=== PATIENT | male | born 1990 | race Caucasian/White ===

== ENCOUNTER 2018-08-11 00:29 | Emergency (ER) | payer OTHER ==
[2018-08-11 00:35] VITALS: BP 128/81
[2018-08-11] MEDS ORDERED: CLINDAMYCIN 150 MG CAP PO ONE (01:10)
[2018-08-11] MEDS ORDERED: CLINDAMYCIN 150MG PREPACK#6 BTL TAKEHOME ONE (01:10)
--- NOTE | 2018-08-11 01:14 | EDPHY ---
H & P Stated Complaint: Bug bite/scratch on R arm, white pus from bite, concerned for MRSA Time Seen by Provider: 08/11/18 00:51 HPI/ROS: HPI The patient presents with red bump of his right forearm which has been present for the last 1 day. It initially drained small amount of pus. He comes in now because he notices that the redness is spreading beyond the red bump. It is slightly painful, not itchy. No prior history of similar.. REVIEW OF SYSTEMS 10 systems were reviewed and negative with the exception of the elements mentioned in the history of present illness. PMHx: Healthy PHYSICAL General Appearance: Alert, no distress Eyes: Pupils equal and round no pallor or injection ENT, Mouth: Mucous membranes moist Respiratory: Breathing comfortably Neurological: A&O, moves all extremities Skin: Warm and dry, right forearm with 5 mm erythematous pustule with surrounding 2 cm of erythema with no lymphangitis streaking Extremities: symmetrical, full range of motion Psychiatric: Patient is oriented X 3, there is no agitation Source: Patient Exam Limitations: No limitations - Personal History Current Tetanus Diphtheria and Acellular Pertussis (TDAP): No - Medical/Surgical History Hx Asthma: No Hx Chronic Respiratory Disease: No Hx Diabetes: No Hx Cardiac Disease: No Hx Renal Disease: No Hx Cirrhosis: No Hx Alcoholism: No Hx HIV/AIDS: No Hx Splenectomy or Spleen Trauma: No Other PMH: Ringworm - Social History Smoking Status: Current some day smoker Constitutional: Initial Vital Signs Temperature (C) 36.4 C 08/11/18 00:30 Heart Rate 82 08/11/18 00:30 Respiratory Rate 17 08/11/18 00:30 Blood Pressure 128/81 H 08/11/18 00:30 O2 Sat (%) 97 08/11/18 00:30 O2 Delivery Mode Room Air Allergies/Adverse Reactions: No Known Allergies Allergy (Unverified 08/11/18 00:35) Home Medications: Medication Instructions Recorded Clindamycin HCl [Clindamycin] 300 mg PO TID 7 Days cap 08/11/18 Medical Decision Making Differential Diagnosis: 28-year-old male with very small abscess with surrounding cellulitis which is quite minimal with no lymphangitis streaking. He has no systemic signs of illness. I will treat with antibiotics and have discussed return precautions. - Data Points Medications Given: Discontinued Medications Clindamycin (Clindamycin) 300 mg PO EDNOW ONE PRN Reason: Protocol Stop: 08/11/18 01:11 Last Admin: 08/11/18 01:17 Dose: 300 mg Clindamycin (Cleocin 150 Mg Prepack#6) 1 btl TAKEHOME EDNOW ONE PRN Reason: Protocol Stop: 08/11/18 01:11 Last Admin: 08/11/18 01:17 Dose: 1 btl Departure - Departure Disposition: Home, Routine, Self-Care Clinical Impression: Pustule Condition: Good Instructions: Clindamycin (By mouth), Cellulitis (ED) Additional Instructions: Please take the antibiotic as prescribed. Within the next 48 hr, the rash should improve. You can get it wet in the shower or the bath. Otherwise, keep it covered with antibiotic ointment and a Band-Aid. Please return to the emergency department if your worse in any way. Referrals: Alyssia Sun MD [Medical Doctor] - As per Instructions Prescriptions: Clindamycin HCl [Clindamycin] 300 mg PO TID 7 Days cap
== END 2018-08-11 01:20 | disposition home or self-care (01) ==
DX: L08.9 Local infection of the skin and subcutaneous tissue, unspecified (principal); W57.XXXA Bitten or stung by nonvenomous insect and other nonvenomous arthropods, initial encounter